=== PATIENT | male | born 2000 ===

== ENCOUNTER → 2022-06-22 | Outpatient (REF) | payer OTHER ==
[2022-06-22 10:06] LABS: SEMEN APPEARANCE OPAQUE (OPAQUE)
[2022-06-22 10:07] LABS: SEMEN VISCOSITY LIQUID (LIQUID); SEMEN VOLUME 1.5 ml (2.0-5.0); SPERM CONCENTRATION 44.5 M/ml (>=15.0); WBC CONCENTRATION <=1 M/ml (<=1 M/ml)
== END ==
LOC: M LAB REF 09:56
PROVIDERS: ATTEND Physician Assistant
DX: Z31.41 Encounter for fertility testing (principal)